=== PATIENT | female | born 1940 | race Caucasian/White ===

== ENCOUNTER 2022-08-30 09:54 | Emergency (ER) | payer MEDICARE ==
[~2022-08-30] VITALS: Ht 163 cm; Wt 68.0 kg
[2022-08-30 10:03] VITALS: BP 165/64
[2022-08-30] MEDS ORDERED: multivitamin (10:18)
[2022-08-30] MEDS ORDERED: AMLO-250 PO (10:18)
[2022-08-30] MEDS ORDERED: ASPI-999 PO (10:18)
[2022-08-30] MEDS ORDERED: LISI20TA26 PO (10:18)
[2022-08-30] MEDS ORDERED: CLOP-31 PO (10:18)
[2022-08-30] MEDS ORDERED: FLUCONAZOLE 150 MG TABLET (ED ONLY) PO ONE (10:45)
--- NOTE | 2022-08-30 10:49 | ED General ---
General Chief Complaint: - Reproductive Stated Complaint: KIDNEY ISSUES Nursing Triage Note: PT STATES FREQUENT URINATION, NO PAIN JUST GOING A LOT. ALSO HAS GERD ISSUES, "FEELS LIKE PINS POKING IN MY MOUTH." Source of Information: Patient Exam Limitations: No Limitations History of Present Illness Date Seen by Provider: August 30, 2022 Time Seen by Provider: 10:35 Initial Comments Patient is a very pleasant 81-year-old female who presents to the emergency room with a chief complaint of increased urinary frequency and pain in her mouth. She did see her primary care provider about 2 weeks ago and was placed on antibiotics but she had a "reaction" and discontinued them. She was not placed on another round of antibiotics. She states every time she drinks about 30 minutes later she is urinating a lot. She is thirsty. She states that she was given a prescription for nystatin which she used for her mouth but it did not help. She denies fevers, chills, URI symptoms. No cough, no abdominal pain. No diarrhea. She has no abdominal pain. Patient states that she had a "light stroke" in June, she is currently on aspirin and Plavix. She also takes medication for high blood pressure. She is not a diabetic that she is aware of. Timing/Duration: Other (2 weeks) Severity: Moderate Associated Systoms: Other (Urinary frequency) Allergies and Home Medications Allergies Coded Allergies: cephalexin (Verified Allergy, Unknown, 08/30/22) Patient Home Medication List Home Medication List Reviewed: Yes Amlodipine Besylate (Amlodipine Besylate) 5 Mg Tablet, 5 MG PO DAILY, (Reported) Entered as Reported by: JACKSON MATHEW on 08/30/221017 Last Action: New Order Aspirin (Aspirin) 81 Mg Tab.chew, 81 MG PO, (Reported) Entered as Reported by: JACKSON MATHEW on 08/30/221017 Last Action: New Order Clopidogrel Bisulfate (Plavix) 75 Mg Tablet, 75 MG PO DAILY, (Reported) Entered as Reported by: JACKSON MATHEW on 08/30/221017 Last Action: New Order Lisinopril (Lisinopril) 20 Mg Tablet, 20 MG PO BID, (Reported) Entered as Reported by: JACKSON MATHEW on 08/30/221017 Last Action: New Order [multivitamin] , (Reported) Entered as Reported by: JACKSON MATHEW on 08/30/22 1018 Last Action: New Order Review of Systems Review of Systems Constitutional: see HPI EENTM: other (Mouth pain, tongue pain) Respiratory: no symptoms reported Cardiovascular: no symptoms reported Gastrointestinal: no symptoms reported Genitourinary: No dysuria; frequency : No Musculoskeletal: no symptoms reported Skin: no symptoms reported Psychiatric/Neurological: No Symptoms Reported Past Tzakavj-Lytlcw-Bcqens Hx Patient Social History Tobacco Use?: No Substance use?: No Alcohol Use?: No Past Medical History Surgery/Hospitalization HX: ABDIFATAH Physical Exam Vital Signs Vital Signs - First Documented 08/30/22 10:03 Temp 36.8 Pulse 71 Resp 18 B/P (MAP) 165/64 (97) Pulse Ox 96 O2 Delivery Room Air Capillary Refill : Less Than 3 Seconds Height, Weight, BMI Height: '" Weight: lbs. oz. kg; 25.00 BMI Method: General Appearance: No Apparent Distress, WD/WN Eyes: Bilateral Eye Normal Inspection, Bilateral Eye PERRL, Bilateral Eye EOMI HEENT: Other (Positive for white plaques on the tongue and right and left buccal mucosa. No pharyngeal erythema no dental tenderness no gingivitis no open wounds) Neck: Normal Inspection, Supple Respiratory: Lungs Clear, Normal Breath Sounds, No Accessory Muscle Use, No Respiratory Distress Cardiovascular: Regular Rate, Rhythm Gastrointestinal: Non Tender, Soft Extremity: Normal Capillary Refill, Normal Inspection, Normal Range of Motion Neurologic/Psychiatric: Alert, Oriented x3, No Motor/Sensory Deficits, Normal M ood/Affect Skin: Normal Color, Warm/Dry Progress/Results/Core Measures Suspected Sepsis SIRS Temperature: Pulse: 71 Respiratory Rate: 18 Blood Pressure 165 /64 Mean: 97 Laboratory Tests 08/30/22 10:55: Creatinine 1.03 Results/Orders Lab Results Laboratory Tests Test 08/30/22 10:25 08/30/22 10:55 Range/Units Urine Color YELLOW Urine Clarity CLEAR Urine pH 6.0 5-9 Urine Specific [place] <=1.005 1.016-1.022 Urine Protein NEGATIVE NEGATIVE Urine Glucose (UA) NEGATIVE NEGATIVE Urine Ketones NEGATIVE NEGATIVE Urine Nitrite NEGATIVE NEGATIVE Urine Bilirubin NEGATIVE NEGATIVE Urine Urobilinogen 0.2 < = 1.0 MG/DL Urine Leukocyte Esterase 2+ H NEGATIVE Urine RBC (Auto) NEGATIVE NEGATIVE Urine RBC NONE /HPF Urine WBC 10-25 H /HPF Urine Squamous Epithelial Cells RARE /HPF Urine Renal Epithelial Cells 0-2 /HPF Urine Crystals NONE /LPF Urine Bacteria TRACE /HPF Urine Casts NONE /LPF Urine Mucus NEGATIVE /LPF Urine Culture Indicated YES Sodium Level 130 L 135-145 MMOL/L Potassium Level 4.4 3.6-5.0 MMOL/L Chloride Level 100 98-107 MMOL/L Carbon Dioxide Level 21 21-32 MMOL/L Anion Gap 9 5-14 MMOL/L Blood Urea Nitrogen 20 H 7-18 MG/DL Creatinine 1.03 0.60-1.30 MG/DL Estimat Glomerular Filtration Rate 54 BUN/Creatinine Ratio 19 Glucose Level 111 H 70-105 MG/DL Calcium Level 9.9 8.5-10.1 MG/DL My Orders Orders - CHLOE SOUZA MD Basic Metabolic Panel (08/30/22 10:45) Ua Culture If Indicated (08/30/22 10:45) Fluconazole Tablet (Ed Only) (Diflucan T (08/30/22 10:45) Urine Culture (08/30/22 10:25) Medications Given in ED Current Medications Medications Dose Ordered Sig/Gema Route Start Time Stop Time Status Last Admin Dose Admin Fluconazole 150 mg ONCE ONCE PO 08/30/22 10:45 08/30/22 10:46 DC 08/30/22 10:52 150 MG Vital Signs/I&O 08/30/22 10:03 Temp 36.8 Pulse 71 Resp 18 B/P (MAP) 165/64 (97) Pulse Ox 96 O2 Delivery Room Air Capillary Refill : Less Than 3 Seconds Blood Pressure Mean: 97 Progress Note : Time: 11:38 Progress Note Patient seen and evaluated by me. Evaluation today includes physical exam, urinalysis, basic metabolic panel. Pertinent physical exam findings well- developed well-nourished 81-year-old female with evidence of oral candidiasis, buccal mucosa and tongue. No other intraoral pathology is identified. Heart is regular, lungs are clear, abdomen is soft and nontender. Differential diagnosis based on history and physical exam, new onset diabetes, simple thrush, urinary tract infection. Labs reviewed by me, urinalysis is pertinent for 10-25 white blood cells with 2+ leukocyte esterase. Trace bacteria. Negative nitrite. Basic metabolic panel is within normal limits, normal renal function and electrolytes. Glucose is also normal. Patient does not have diabetes. Patient is treated with oral Diflucan here in the department and will be sent out with a prescription for antibiotics, Macrobid for her urinary tract infection and Diflucan for 1 week. Encouraged to follow-up with her primary care physician in a week. She is comfortable with plan of care. All questions are sought and answered. Departure Impression Primary Impression: Oral candidiasis Additional Impression: Urinary tract infection Qualified Codes: N30.00 - Acute cystitis without hematuria Disposition: HOME, SELF-CARE Condition: Stable Departure-Patient Inst. Decision time for Depature: 11:41 Referrals: NO,LOCAL PHYSICIAN (PCP/Family) Primary Care Physician Patient Instructions: Urinary Tract Infection, Adult (DC), Thrush Add. Discharge Instructions: Take the Clotrimazole tablets 5 times a day for 10 days. Allow the tablets to dissolve in the mouth. Macrobid, one tablet twice a day for 5 days. We will do a urine culture here at the hospital and if the antibiotic needs to be changed, we will call you and let you know. If you develop abdominal pain, fever or any other emergent, concerning symptoms, please return to the Emergency Department for re-evaluation. Follow up with your primary care doctor in 1 week. Scripts Clotrimazole (Clotrimazole) 10 Mg Annalisa 10 MG MM UD for 10 Days, #50 TAB Allow 1 tablet to dissolve in the mouth 5 times a day for 10 days. Prov: CHLOE SOUZA MD 08/30/22 Nitrofurantoin Monohyd/M-Cryst (Macrobid 100 mg Capsule) 100 Mg Capsule 1 TAB PO BID for 5 Days, #10 CAP Prov: CHLOE SOUZA MD 08/30/22 CHLOE SOUZA MD August 30, 2022 10:49
[2022-08-30 10:53] LABS: BILIRUBIN,URINE NEGATIVE (NEGATIVE); CLARITY,URINE CLEAR; COLOR,URINE YELLOW; GLUCOSE, URINE (UA) NEGATIVE (NEGATIVE); KETONES,URINE NEGATIVE (NEGATIVE); LEUKOCYTE ESTERASE ,URINE 2+ (NEGATIVE); NITRITE,URINE NEGATIVE (NEGATIVE); PROTEIN,URINE NEGATIVE (NEGATIVE)
[2022-08-30 11:12] LABS: BACTERIA,URINE TRACE /HPF; RENAL EPITHELIAL CELLS,URINE 0-2 /HPF; SQUAMOUS EPITHELIAL CELL,UR RARE /HPF
[2022-08-30 11:13] LABS: POTASSIUM 4.4 MMOL/L (3.6-5.0)
[2022-08-30 11:14] LABS: CALCIUM 9.9 MG/DL (8.5-10.1)
[2022-08-30 11:18] LABS: CREATININE SERUM 1.03 MG/DL (0.60-1.30)
[2022-08-30] MEDS ORDERED: NITR-65 PO (11:43)
[2022-08-30] MEDS ORDERED: FLUC100T PO (11:43)
[2022-08-30] MEDS ORDERED: CLOT10TR MM (11:50)
== END 2022-08-30 11:55 | disposition home or self-care (01) ==
LOC: ER 09:59
DX: B37.0 Candidal stomatitis (principal); N39.0 Urinary tract infection, site not specified; I10 Essential (primary) hypertension; Z79.02 Long term (current) use of antithrombotics/antiplatelets; Z79.82 Long term (current) use of aspirin; Z79.899 Other long term (current) drug therapy; Z88.1 Allergy status to other antibiotic agents; Z28.310 Unvaccinated for COVID-19
CPT/HCPCS: 36415; 80048; 81000; 87088; 99282